=== PATIENT | female | born 1995 | race Caucasian/White ===

== ENCOUNTER 2019-05-14 17:59 | Emergency (ER) ==
[2019-05-14 18:05] VITALS: BP 152/103; TEMP 98.6; BMI 26.3
--- NOTE | 2019-05-14 18:25 | ED.PDOC ---
General <KEV DE LUNA - Last Filed: 05/14/19 21:38> Stated Complaint: Period lasting 9 days; was less flow about 4 days ago. Today increased flow. Also has urgency and discomfor in the pelvic region. Time Seen by Physician: 18:25 Mode of Arrival: Walk-In Information Source: Patient Exam Limitations: No limitations Nursing and Triage Documentation Reviewed and Agree: Yes Does patient meet sepsis criteria?: No System Inflammatory Response Syndrome: Not Applicable <JAYY COMER - Last Filed: 05/15/19 08:20> ED Provider: Dr. JAYY COMER Chief Complaint: Abdominal Pain Primary Care Provider: CARA LUQUE Sepsis Protocol: For patient's 13 years and over: Temp is 96.8 and below OR 101 and greater Pulse >90 BPM Resp >20/minute Acutely Altered Mental Status Are patient's symptoms suggestive of a new infection, such as: -Pneumonia -Skin, Soft Tissue -Endocarditis -UTI -Bone, Joint Infection -Implantable Device -Acute Abdominal Infection -Wound Infection -Meningitis -Blood Stream Catheter Infection -Unknown Review of Systems - Review Of Systems Constitutional: Reports: Malaise Respiratory: Reports: No symptoms Cardiac: Reports: No symptoms GI: Reports: Abdominal pain, Nausea All Other Systems: Reviewed and Negative <JAYY COMER - Last Filed: 05/15/19 08:20> Past Medical History - Past Medical History Previously Healthy: Yes Endocrine: Reports: None Cardiovascular: Reports: None Respiratory: Reports: None Hematological: Reports: None Gastrointestinal: Reports: None Genitourinary: Reports: None Neuro/Psych: Reports: Depression Musculoskeletal: Reports: None Cancer: Reports: None Last Menstrual Period: PRESENTLY - Surgical History General Surgical History: Reports: None - Family History Family History: Reports: Unknown - Social History Smoking Status: Current every day smoker, Heavy tobacco smoker Hx Substance Use: No Alcohol Screening: None - Immunizations Tetanus Shot up to Date: Yes <JAYY COMER - Last Filed: 05/15/19 08:20> Physical Exam - Physical Exam Appearance: Well-appearing Ill-appearing: None Pain Distress: None (On initial view sitting upright on exam bed without apparent discomfort.) Eyes: NOE, EOMI ENT: Oropharynx normal Respiratory: Airway patent, Breath sounds clear, Breath sounds equal, Respirations nonlabored Cardiovascular: RRR, Pulses normal GI/: Soft, Nontender (to palpation all quadrants - sensitive to palpation suprapubic region) Musculoskeletal: No edema Skin: Warm, Dry, Normal color <JAYY COMER - Last Filed: 05/15/19 08:20> Interpretation - Radiology Interpretation Radiology Interpretation By: Radiologist Radiology Results: Negative Exam Interpreted: CT Scan <KEV DE LUNA - Last Filed: 05/14/19 21:38> Physician Notification - Case Discussed Endorsed To/Discussed With: Dr De Luna Time of Discussion: 19:16 <JAYY COMER - Last Filed: 05/15/19 08:20> Critical Care Note - Critical Care Note Total Time (mins): 10 <JAYY COMER - Last Filed: 05/15/19 08:20> Course - Course Hematology/Chemistry: 05/14/19 18:50 05/14/19 18:50 <KEV DE LUNA - Last Filed: 05/14/19 21:38> - Course Hematology/Chemistry: 05/14/19 18:50 05/14/19 18:50 <JAYY COMER - Last Filed: 05/15/19 08:20> - Course Orders, Labs, Meds: Lab Review 05/14/19 05/14/19 05/14/19 18:39 18:50 18:50 WBC 9.83 RBC 4.11 L Hgb 13.2 Hct 38.1 MCV 92.7 MCH 32.1 H MCHC 34.6 RDW Coeff of Cedric 13.2 Plt Count 213 Immature Gran % (Auto) 0.3 Neut % (Auto) 55.9 Lymph % (Auto) 34.8 Mchenry % (Auto) 7.4 Eos % (Auto) 0.9 Baso % (Auto) 0.7 Immature Gran # (Auto) 0.0 Neut # (Auto) 5.5 Lymph # (Auto) 3.4 Mchenry # (Auto) 0.7 Eos # (Auto) 0.1 Baso # (Auto) 0.1 Sodium 139.7 Potassium 3.54 Chloride 105.4 Carbon Dioxide 26.2 Anion Gap 11.64 BUN 11.0 Creatinine 0.93 Estimated GFR (MDRD) 75.00 BUN/Creatinine Ratio 11.82 Glucose 96.7 Calcium 9.19 Total Bilirubin 0.41 AST 23.0 ALT 13.7 Alkaline Phosphatase 60.0 Total Protein 7.30 Albumin 4.45 Globulin 2.85 Albumin/Globulin Ratio 1.56 Serum , Qual Urine Color Yellow Urine Clarity Clear Urine pH 7.0 Ur Specific Mcfaddin 1.015 Urine Protein Negative Urine Glucose (UA) Negative Urine Ketones Negative Urine Blood 2+ Urine Nitrite Negative Urine Bilirubin Negative Urine Urobilinogen 1.0 Ur Leukocyte Esterase 1+ Urine Microscopic RBC 0-2 Urine Microscopic WBC 2-5 Ur Squamous Epith Cells 5-10 Urine Bacteria Trace Urine Yeast Trace 05/14/19 18:50 WBC RBC Hgb Hct MCV MCH MCHC RDW Coeff of Cedric Plt Count Immature Gran % (Auto) Neut % (Auto) Lymph % (Auto) Mchenry % (Auto) Eos % (Auto) Baso % (Auto) Immature Gran # (Auto) Neut # (Auto) Lymph # (Auto) Mchenry # (Auto) Eos # (Auto) Baso # (Auto) Sodium Potassium Chloride Carbon Dioxide Anion Gap BUN Creatinine Estimated GFR (MDRD) BUN/Creatinine Ratio Glucose Calcium Total Bilirubin AST ALT Alkaline Phosphatase Total Protein Albumin Globulin Albumin/Globulin Ratio Serum , Qual Negative Urine Color Urine Clarity Urine pH Ur Specific Mcfaddin Urine Protein Urine Glucose (UA) Urine Ketones Urine Blood Urine Nitrite Urine Bilirubin Urine Urobilinogen Ur Leukocyte Esterase Urine Microscopic RBC Urine Microscopic WBC Ur Squamous Epith Cells Urine Bacteria Urine Yeast Orders Category Date Time Status NPO REMINDER: IMAGING ONCE CARE 05/14/19 19:31 Completed CBC W/ AUTO DIFF Stat LAB 05/14/19 18:50 Completed COMPREHENSIVE METABOLIC PANEL Stat LAB 05/14/19 18:50 Completed HCG QUALITATIVE [SERUM ] Stat LAB 05/14/19 18:50 Completed URINALYSIS C & S IF INDICATED Stat LAB 05/14/19 18:39 Completed Ketorolac Tromethamine [Toradol] MEDS 05/14/19 19:31 Discontinued 30 mg IVP ONCE STA Ondansetron HCl/Pf [Zofran 4 mg/2 ml] MEDS 05/14/19 20:35 Discontinued 4 mg IVP ONCE STA Ringers Lactated Solution [Lactated Ringers] 1,000 ml MEDS 05/14/19 19:[address] ABDOMEN/PELVIS W/WO CONTRAS Stat RADS 05/14/19 19:31 Completed Medications Discontinued Medications Generic Name Dose Route Start Last Admin Trade Name Freq PRN Reason Stop Dose Admin Lactated Ringer's 1,000 mls @ 1,000 mls/hr 05/14/19 19:31 05/14/19 19:40 Lactated Ringers IV 05/14/19 20:30 1,000 mls/hr BOLUS STA Administration Ketorolac Tromethamine 30 mg 05/14/19 19:31 05/14/19 19:40 Toradol IVP 05/14/19 19:32 30 mg ONCE STA Administration Ondansetron HCl 4 mg 05/14/19 20:35 05/14/19 20:42 Zofran 4 Mg/2 Ml IVP 05/14/19 20:36 4 mg ONCE STA Administration Vital Signs: Temp Pulse Resp BP Pulse Ox 05/14/19 17:59 98.6 F 101 H 18 152/103 H 96 Departure - Departure Time of Disposition: 21:26 Pt referred to PMD for follow-up: Yes IPMP verified?: No Disposition Discussed With: Patient, Family <KEV DE LUNA - Last Filed: 05/14/19 21:38> <JAYY COMER - Last Filed: 05/15/19 08:20> - Departure Disposition: HOME SELF-CARE Discharge Problem: Abdominal pain Instructions: Acute Abdominal Pain (ED) Condition: Fair Additional Instructions: Take Medications as prescribed Follow up with PCP in 3 days Prescriptions: Ondansetron [Zofran Odt] 4 mg PO Q8H #12 tab.rapdis Tramadol HCl [Ultram] 50 mg PO Q6H PRN #14 tablet PRN Reason: Severe Pain Allergies/Adverse Reactions: Allergies amoxicillin Adverse Reaction (Mild, Unverified 05/14/19 18:05) itching Home Medications: Ambulatory Orders Ondansetron [Zofran Odt] 4 mg PO Q8H #12 tab.rapdis 05/14/19 Tramadol HCl [Ultram] 50 mg PO Q6H PRN #14 tablet 05/14/19
[2019-05-14] MEDS: LACTATED RINGERS 1,000 ML IV STA (19:40)
[2019-05-14] MEDS: TORADOL IVP STA (19:40)
[2019-05-14] MEDS: ZOFRAN 4 MG/2 ML IVP STA (20:42)
--- NOTE | 2019-05-14 20:53 | CT ---
Exam: CT abdomen and pelvis with and without contrast Date: 05/14/2019 Comparison: Pelvic ultrasound 04/20/2019 History: Lower abdominal pain since 05/03/2019. Vaginal spotting and irregular periods this month. No fever. Negative serum test. Normal wbc. No previous surgical history. TECHNIQUE: Axial CT images through the abdomen and pelvis were obtained after the intravenous admini stration of 75 mL of Omnipaque-350 via the right antecubital IV. FINDINGS: Liver, spleen, pancreas, adrenal glands, and both kidneys are normal. Gallbladder is norm al in caliber. No pericholecystic fluid or fat stranding. The appendix is not identified, but no se condary findings of acute appendicitis. No bowel obstruction. There is a large amount of stool. No abdominal aortic aneurysm or dissection. No pneumoperitoneum. No hemoperitoneum or retroperitoneal hemorrhage. The uterus and ovaries are grossly normal. No bladder calculi or bladder wall thickenin g. There is trace free pelvic fluid. No worrisome blastic or lytic osseous lesions. No acute fract ures. No evidence of osteomyelitis - diskitis. Impression: No acute finding in the abdomen or pelvis. Nonvisualization of the appendix, but no seco ndary findings of acute appendicitis.
== END 2019-05-14 21:40 | disposition home or self-care (01) ==
LOC: ED 17:59
DX: R10.9 Unspecified abdominal pain (principal); R39.15 Urgency of urination; N92.5 Other specified irregular menstruation; F17.210 Nicotine dependence, cigarettes, uncomplicated
CPT/HCPCS: 36415; 80053; 81001; 84703; 85025; 96361; 96374; 96375; 99283